=== PATIENT | female | born 1980 | race Caucasian/White ===

== ENCOUNTER 2016-08-27 18:56 | Emergency (ER) | payer OTHER ==
[~2016-08-27] VITALS: Ht 160 cm; Wt 95.5 kg
[2016-08-27 21:05] VITALS: BP 152/93
[2016-08-27] MEDS ORDERED: KETOROLAC TROMETHAMINE 60 MG/2 ML VIAL IM ONE (22:00)
[2016-08-27] MEDS ORDERED: PENICILLIN V POTASSIUM 500 MG TABLET PO ONE (22:00)
== END 2016-08-27 22:25 | disposition home or self-care (01) ==
LOC: EMS 18:59
DX: J03.90 Acute tonsillitis, unspecified (principal); I10 Essential (primary) hypertension
CPT/HCPCS: 96372; 99283; J1885